=== PATIENT | male | born 1930 | race Caucasian/White ===

== ENCOUNTER 2017-07-17 16:27 | Observation (INO) ==
[2017-07-18] MEDS ORDERED: Naloxone 0.4 MG/ML INJ IVP PRN ×2 (09:29→09:32)
[2017-07-18] MEDS ORDERED: *HR* HYDROcodone/Acet 5/325 mg TABLET PO PRN (09:32)
[2017-07-18] MEDS ORDERED: *HR* HYDROmorphone (PF) 1 MG/ML SYRINGE IVP PRN (09:32)
--- NOTE | 2017-07-18 09:39 | Urology History & Physical ---
Date of Encounter: 07/18/17 Time of Encounter: 09:37 Assessment and Plan (1) Acute on chronic renal insufficiency Current Visit: Yes Status: Acute Im concerned the pt has developed ureteral obstruction after TURBT secondary to extensive tumor at trigone. will obtain stat labs and ct scan. may need IR nephrostomy tube. 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 Barnes is a 87 year old male pt underwent TURBT on thursday. extensive bladder CA at trigone. unable to visualize left UO. right UO spared. CR has increased from 1.4 to 2.0 to 2.9 this week. pt asymptomatic. told to come to hospital for admission. Past Med Surg Social Fam HX - Past Medical History Medical history: hyperlipidemia, hypertension Psychiatric history: no psych history - Past Surgical History Surgical History: angioplasty/stent, appendectomy, cholecystectomy, hip replacement - Social History Smoking Status: Never smoker Smokeless Tobacco Status: Yes Drug use: none Medications and Allergies Cholecalciferol (D-3) [Vitamin D] 1,000 unit PO DAILY 02/11/17 [History] Finasteride [Proscar] 5 mg PO DAILY 02/11/17 [History] Lovastatin 40 mg PO HS 02/11/17 [History] Oxaprozin [Daypro] 600 mg PO BID 02/11/17 [History] Ramipril [Altace] 10 mg PO DAILY 02/11/17 [History] Amlodipine Besylate 10 mg PO DAILY 07/14/17 [History] Metoprolol XL (24 HR) Succ [Toprol Xl] 50 mg PO DAILY 07/14/17 [History] Metoprolol XL (24 HR) Succ [Toprol Xl] 50 mg PO DAILY tab.er.24h 07/14/17 [Rx] OxyCODONE/APAP 5/325 [Percocet 5/325 MG] 1 each PO Q4HR PRN #10 tablet 07/14/17 [Rx] Phenazopyridine [Pyridium] 100 mg PO TID PRN #20 tablet 07/14/17 [Rx] amLODIPine [Norvasc] 10 mg PO DAILY tablet 07/14/17 [Rx] 3 Allergy/AdvReac Type Severity Reaction Status Date / Time NAHEED Inhibitors AdvReac Mild See Verified 07/14/17 13:45 Comments Sulfa (Sulfonamide AdvReac Rash Verified 07/14/17 13:45 Antibiotics) Review of Systems - Constitutional no fever(s) - EENT Nose, mouth and throat: no dizziness - Cardiovascular no chest pain - Respiratory no cough - Gastrointestinal no abdominal pain - Genitourinary hematuria - Musculoskeletal no back pain - Integumentary no erythema - Neurological no confusion - Psychiatric no anxiety - Hematologic/Lymphatic no easy bleeding - Allergic/Immunologic no throat swelling Exam - General physical appearance Present: well developed, no distress - Eyes Present: PERRL - ENT Present: normal nares - Neck Present: no masses - Respiratory Present: normal respiratory effort - Abdomen Abdomen: Present: soft - Integumentary Present: no rash - Neurologic Present: normal coordination. Absent: disoriented, confused Urology Results - Labs All other labs normal.
[2017-07-18] MEDS: 0.9 % Sodium Chloride 1,000 ML IVC SCH ×2 (11:09→22:19)
[2017-07-18] MEDS: Ondansetron 4 MG/2 ML VIAL IVP PRN ×2 (11:29→18:17)
[2017-07-18 11:36] LABS: Basophils % 0.3 %; Eosinophils % 0.5 %; Hematocrit 37.5 % (37.5-50.1); Hemoglobin 12.3 g/dL (12.9-16.9); Immature Granulocytes % 0.5 % (0-4); Lymphocytes # 0.7 K/mcL (0.6-4.6); Lymphocytes % 9.1 %; Mean Corpuscular HGB Conc 32.8 g/dL (31.6-35.5); Mean Corpuscular Hemoglobin 31.7 pg (28.0-33.3); Mean Corpuscular Volume 96.6 fL (83.0-100.0); Mean Platelet Volume 10.7 fL (9.4-12.4); Monocytes # 0.9 K/mcL (0.0-1.3); Monocytes % 11.8 %; Platelet Count 216 K/mcL (140-400); Red Blood Count 3.88 M/mcL (4.19-5.50); Red Cell Distribution Width 13.9 % (11.5-14.5); Segmented Neutrophils % 77.8 %
[2017-07-18 11:40] LABS: Neutrophils # 6.1 K/mcL (1.6-8.9)
[2017-07-18 11:42] LABS: INR 1.1
[2017-07-18 11:45] LABS: Activated Partial Thrombo Time 25.8 Seconds (26.0-36.0)
[2017-07-18 11:49] LABS: Calcium 10.1 mg/dL (8.6-10.8); Potassium 4.9 mEq/L (3.5-4.5)
[2017-07-18] MEDS: *HR* Promethazine 25 MG/ML VIAL IVP PRN ×2 (14:43→22:21)
[2017-07-19 07:09] VITALS: BP 145/81
[2017-07-19 07:42] LABS: Potassium 4.1 mEq/L (3.5-4.5)
[2017-07-19 07:43] LABS: Calcium 8.5 mg/dL (8.6-10.8)
--- NOTE | 2017-07-19 08:33 | Urology Progress Note ---
Date of Encounter: 07/19/17 Time of Encounter: 08:31 - Assessment and Plan (1) Acute on chronic renal insufficiency Current Visit: Yes Status: Resolved Assessment and plan: Resolved with nephrostomy tube. Creatinine down to 1.6. Likely discharge today. 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 No nausea the last 12 hours. Feels okay. Nephrostomy tube placed yesterday afternoon. Objective Initial Vital Signs Temp Pulse Resp BP Pulse Ox 98.2 F 83 18 125/79 94 07/18/17 10:59 07/18/17 10:59 07/18/17 10:59 07/18/17 10:59 07/18/17 10:59 - General physical appearance Present: no distress - Additional Exam Voided urine transparent but dusky Right nephrostomy tube transparent brownish urine. - Labs 07/18/17 11:06 07/19/17 07:18 Diabetes panel 07/18/17 07/19/17 Range/Units 11:06 07:18 Sodium 139 142 (136-145) mEq/L Potassium 4.9 H 4.1 (3.5-4.5) mEq/L Chloride 105 108 (98-109) mEq/L Carbon Dioxide 24 24 (19-29) mEq/L BUN 46 H 41 H (8-26) mg/dL Creatinine 2.76 H 1.66 H (0.72-1.25) mg/dL Glucose 122 H 100 H (70-99) mg/dL Calcium 10.1 8.5 L D (8.6-10.8) mg/dL Calcium panel 07/18/17 07/19/17 Range/Units 11:06 07:18 Calcium 10.1 8.5 L D (8.6-10.8) mg/dL Pituitary panel 07/18/17 07/19/17 Range/Units 11:06 07:18 Sodium 139 142 (136-145) mEq/L Potassium 4.9 H 4.1 (3.5-4.5) mEq/L Chloride 105 108 (98-109) mEq/L Carbon Dioxide 24 24 (19-29) mEq/L BUN 46 H 41 H (8-26) mg/dL Creatinine 2.76 H 1.66 H (0.72-1.25) mg/dL Glucose 122 H 100 H (70-99) mg/dL Calcium 10.1 8.5 L D (8.6-10.8) mg/dL Adrenal panel 07/18/17 07/19/17 Range/Units 11:06 07:18 Sodium 139 142 (136-145) mEq/L Potassium 4.9 H 4.1 (3.5-4.5) mEq/L Chloride 105 108 (98-109) mEq/L Carbon Dioxide 24 24 (19-29) mEq/L BUN 46 H 41 H (8-26) mg/dL Creatinine 2.76 H 1.66 H (0.72-1.25) mg/dL Glucose 122 H 100 H (70-99) mg/dL Calcium 10.1 8.5 L D (8.6-10.8) mg/dL Consult Discharge Plan - Plan Referrals: Cassia Hernandez, TRACTOR MECHANIC APPRENTICE [Primary Care Provider] -
--- NOTE | 2017-07-19 08:36 | Discharge Summary ---
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 - Discharge Medications Prescriptions: Cephalexin [Keflex] 500 mg PO BID #10 capsule Home Medications: Cholecalciferol (D-3) [Vitamin D] 1,000 unit PO DAILY 02/11/17 [History] Finasteride [Proscar] 5 mg PO DAILY 02/11/17 [History] Lovastatin 40 mg PO HS 02/11/17 [History] Oxaprozin [Daypro] 600 mg PO BID 02/11/17 [History] Ramipril [Altace] 10 mg PO DAILY 02/11/17 [History] Amlodipine Besylate 10 mg PO DAILY 07/14/17 [History] Metoprolol XL (24 HR) Succ [Toprol Xl] 50 mg PO DAILY tab.er.24h 07/14/17 [Rx] Alfuzosin HCl [Uroxatral] 10 mg PO DAILY 07/18/17 [History] Cephalexin [Keflex] 500 mg PO BID #10 capsule 07/19/17 [Rx] Allergies/Adverse Reactions: 3 Allergy/AdvReac Type Severity Reaction Status Date / Time NAHEED Inhibitors AdvReac Mild See Verified 07/14/17 13:45 Comments Sulfa (Sulfonamide AdvReac Rash Verified 07/14/17 13:45 Antibiotics) Labs on day of discharge: Labs from last 24 hours 07/19/17 07/18/17 07/18/17 07:18 11:06 11:06 WBC RBC Hgb Hct MCV MCH MCHC RDW Plt Count MPV Immature Gran % Seg Neutrophils % Lymphocytes % Monocytes % Eosinophils % Basophils % Neutrophils # Lymphocytes # Monocytes # Eosinophils # Basophils # Immature Plt Fraction PT 12.0 INR 1.1 APTT 25.8 L Sodium 142 139 Potassium 4.1 4.9 H Chloride 108 105 Carbon Dioxide 24 24 BUN 41 H 46 H Creatinine 1.66 H 2.76 H Est GFR ( Amer) 48 L 27 L Est GFR (Non-Af Amer) 40 L 22 L BUN/Creatinine Ratio 25 17 Glucose 100 H 122 H Calculated Osmolality 304 H 301 H Calcium 8.5 L D 10.1 07/18/17 11:06 WBC 7.8 D RBC 3.88 L Hgb 12.3 L Hct 37.5 MCV 96.6 MCH 31.7 MCHC 32.8 RDW 13.9 Plt Count 216 MPV 10.7 Immature Gran % 0.5 Seg Neutrophils % 77.8 Lymphocytes % 9.1 Monocytes % 11.8 Eosinophils % 0.5 Basophils % 0.3 Neutrophils # 6.1 Lymphocytes # 0.7 Monocytes # 0.9 Eosinophils # 0.0 Basophils # 0.0 Immature Plt Fraction 5.0 PT INR APTT Sodium Potassium Chloride Carbon Dioxide BUN Creatinine Est GFR ( Amer) Est GFR (Non-Af Amer) BUN/Creatinine Ratio Glucose Calculated Osmolality Calcium - Impressions ITS Impressions Abdomen/Pelvis CT 07/18/17 09:32 IMPRESSION: 1. Recent history of bladder surgery with multiple mucosal nodules observed within the lumen on the current exam. Mild inflammation in the perivesicular fat. 2. Mild right hydroureteronephrosis likely secondary to recent procedure. Possibility of obstruction at the right UVJ cannot be excluded. 3. Multiple cystic lesions in the bilateral kidneys which cannot be characterized on this noncontrast exam. 1 on the left is hyperdense. Follow-up evaluation may be considered with multiphase CT or MRI using renal protocol. 4. Chronic pleural changes in the lower chest incidentally noted. D/ / Santiago Coffey MD / Santiago Coffey MD Interpreting Provider: Santiago Coffey MD Date of admission: 07/18/17 08:51 Primary care physician: Cassia Hernandez CNP Discharging clinician: Wiley Angel Anticipated date of discharge: 07/19/17 - Patient Status Disposition: Home, Self-Care Condition: Good Functional capacity at discharge: independent ambulation Overall status at discharge: patient is progressing back to baseline - Discharge Instructions Follow Up With: Cassia Hernandez CNP [Primary Care Provider] - Wiley Angel MD [Partnered Physician] - (my office will call to remove nephrostomy tube and antegrade a stent into the bladder. ) Additional Instructions: OK to shower no baths or swimming. protect the nephrostomy tube so it is not accidentally removed please instruct patient how to empty the bag and secure bag. - Diet and Activity Activity: resume usual activities as tolerated Diet: advance to your usual diet - Hospital Course Hospital course: Mr. Barnes is a 87 year old male admitted with worsening renal function after TURBT. CT with with right hydronephrosis. nephrostomy tube placed. Cr back to near baseline. N/V after procedure but none in 12hours. - Time Spent with Patient Total time spent providing and/or coordinating discharge services: Exam Initial Vital Signs Temp Pulse Resp BP Pulse Ox 98.2 F 83 18 125/79 94 07/18/17 10:59 07/18/17 10:59 07/18/17 10:59 07/18/17 10:59 07/18/17 10:59 - General physical appearance Present: well developed, no distress - Additional Findings urine transparent brownish
[2017-07-19] MEDS ORDERED: Metoprolol XL (24 HR) Succ 50 MG TAB.ER.24H PO SCH (09:00)
[2017-07-19] MEDS ORDERED: Finasteride 5 MG TABLET PO SCH (09:00)
[2017-07-19] MEDS ORDERED: amLODIPine 5 MG TABLET PO SCH (09:00)
== END 2017-07-19 16:45 | disposition home or self-care (01) ==
LOC: 3ANU
PROVIDERS: ADMIT Urology; ATTEND Urology

== ENCOUNTER 2018-04-13 12:09 | Observation (INO) ==
--- NOTE | 2018-04-13 08:40 | Anesthesia Evaluation PreOp ---
Date of Encounter: 04/13/18 Time of Encounter: 13:33 - Past History Planned Operation: TURBT Cardiac History: DC (2004), HTN, Hyperlipidemia, Cardiac Stent (stent x 2, most recent in 2005) Pulmonary History: Former smoker (quit 30 years), Snore FLEET ADMINISTRATIVE ASSISTANT History: Denies Any Significant HX Other Medical History: Renal (stage 3 CKD, bladder tumor), GERD Anesthesia History: No Prior Anesthetic Complications, Past Anesthesia Alcohol Use: none Drug use: none Medications and Allergies Cholecalciferol (D-3) [Vitamin D] 1,000 unit PO DAILY 02/11/17 [History] Finasteride [Proscar] 5 mg PO DAILY 02/11/17 [History] Oxaprozin [Daypro] 600 mg PO BID 02/11/17 [History] Ramipril [Altace] 10 mg PO DAILY 02/11/17 [History] Metoprolol XL (24 HR) Succ [Toprol Xl] 50 mg PO DAILY tab.er.24h 07/14/17 [Rx] Amlodipine Besylate 10 mg PO DAILY 12/01/17 [History] HYDROcodone/Acet 5/325 mg [[place] 5-325 mg] 1 tab PO Q4H PRN 3 Days #10 tab 12/01 [Rx] Lovastatin 40 mg PO HS 12/01/17 [History] Ondansetron HCl [Zofran] 4 mg PO Q8HR PRN #30 tab 12/23/17 [Rx] Oxybutynin [Ditropan] 5 mg PO TID #30 tablet 01/05/18 [Rx] raNITIdine HCl [Zantac] 150 mg PO DAILY #30 tablet 01/19/18 [Rx] 3 Allergy/AdvReac Type Severity Reaction Status Date / Time NAHEED Inhibitors AdvReac Mild See Verified 01/05/18 08:41 Comments Sulfa (Sulfonamide AdvReac Rash Verified 01/05/18 08:41 Antibiotics) - Meds/Allergy Pre-op Review Medications Reviewed: Yes Allergies Reviewed: Yes Beta Blockers on Current Med List: Yes If Beta Blockers taken, Date/Time (Last Dose taken): 04/13/2018 at 0830 Anesthesia Results - Labs Laboratory Tests 07/18/17 01/05/18 01/05/18 11:06 08:16 08:16 WBC 5.5 Hgb 13.5 Hct 41.6 Plt Count 248 PT 12.0 INR 1.1 APTT 25.8 L Sodium 138 Potassium 4.3 BUN 36 H Creatinine 1.57 H - Imaging EKG: report reviewed (12/01/2017 SINUS RHYTHM) Additional studies: ECHO Impressions: LVEF 55%. Not all LV segments were well visualized, but overall function is normal. Normal LV chamber size and wall thickness. Mild left ventricular diastolic dysfunction. Normal right ventricular structure and function. No evidence of pulmonary hypertension. No significant valvular dysfunction. Anesthesia Exam O2 Sat Height 1.77 m Height 1.77 m Weight 85.275 kg Weight 85.275 kg O2 Sat by Pulse Oximetry 97 Vital Signs Temp Pulse Resp BP Pulse Ox 97.5 F L 68 18 130/73 97 04/13/18 12:32 04/13/18 12:32 04/13/18 12:32 04/13/18 12:32 04/13/18 12:32 Height: 5'10" Weight: 188 lbs NPO (# of Hours): 8 Pain Scale: 0 Pain Scale Used: Numeric (1 - 10) - HEENT Pupil (Motor): EOMI Mallampati: III Teeth: Edentulous Oral Opening: Greater than 3 - FLEET ADMINISTRATIVE ASSISTANT LOC: Oriented FLEET ADMINISTRATIVE ASSISTANT Motor: Normal RUE, Normal LUE, Normal RLE, Normal LLE, Normal Face FLEET ADMINISTRATIVE ASSISTANT Sensory: Normal: RUE, LUE, RLE, LLE, Face - Cardiac Rhythm: Regular Murmur: None - Pulmonary Breath Sounds: bilateral Clear Respiratory Effort: Symmetrical Anesthesia Assess/Plan ASA Score: 3 Modified Dao Scale for Level of Consciousness: Cooperative, oriented, and tranquil Anesthetic Plan: General Monitoring Plan: Standard Monitors Recovery Plan: PACU
[~2018-04-13 12:09] MED LIST: MITOMYCIN 40 MG IR SCH; WATER FOR INJ IR SCH
[2018-04-13] MEDS ORDERED: CeFAZolin Syr 2,000MG/20 ML 2,000 MG/20 ML SYRINGE IVPB ONE (13:23)
[2018-04-13] MEDS ORDERED: Ringers Solution, Lactated 1,000 ML IVC SCH (13:30)
--- NOTE | 2018-04-13 14:01 | History & Physical Report ---
Date of Encounter: 04/13/18 Time of Encounter: 14:01 24 Hour HP Update - Instructions Instructions: If the History and Physical is less than 30 days old and was completed prior to A.M. admission and or procedure and has NOT been updated on calendar day of procedure please complete this update prior to performing procedure. - Update Patient reports changes in Medical Condition: No Changes in examination, assessment, or condition: No Changes in Medication: No Preop tests/diagnostics Reviewed: Yes Surgery Remains Indicated: Yes Consent for Planned Operative Procedure(s) Verified: Yes - Pre-Operative Checklist Preoperative Checklist Indicated: Yes Prophylactic Antibiotic Ordered: Yes Home Medications Include Beta Shayy: Yes Beta Shayy Taken Today (Day of Surgery): Yes Beta Shayy Taken Yesterday (Day Prior to Surgery): Yes Is VTE Prophylaxis Indicated?: Yes
[2018-04-13] MEDS ORDERED: *HR* FentaNYL (PF) 100 MCG/2 ML VIAL ONE (14:34)
[2018-04-13] MEDS ORDERED: *HR* Propofol 200 MG/20 ML VIAL IVP ONE (14:34)
[2018-04-13] MEDS ORDERED: Lidocaine -MPF 2% 2 ML VIAL ONE (14:36)
[2018-04-13] MEDS ORDERED: *HR* Promethazine 25 MG/ML VIAL IVP PRN (14:37)
[2018-04-13] MEDS ORDERED: MORPHINE SUL Oral CONC 10 MG/0.5 ML ORAL.SYG SL PRN (14:37)
[2018-04-13] MEDS ORDERED: *HR* HYDROmorphone 2 MG TABLET PO PRN (14:37)
[2018-04-13] MEDS ORDERED: *HR* OxyCODONE Immed Rel 5 MG TABLET PO PRN (14:37)
[2018-04-13] MEDS ORDERED: Ondansetron 4 MG/2 ML VIAL IVP ONE (14:37)
[2018-04-13] MEDS ORDERED: *HR* HYDROcodone/Acet 5/325 mg TABLET PO ONE (14:57)
[2018-04-13] MEDS ORDERED: Acetaminophen IV 1,000 MG/100 ML INFUS..BTL ONE (14:58)
--- NOTE | 2018-04-13 15:01 | Discharge Summary ---
Outpatient Proc Discharge Plan - Plan Additional Instructions: Mitomycin was placed at . Please remove hemostat and allow bladder to drain into Rosenbaum bag at . After the bladder drains, remove the Rosenbaum catheter prior to discharge My office will contact patient regarding pathology and follow-up Expect urgency, frequency, light blood in the urine, burning on urination Avoid heavy lifting and heavy activity for at least 1 week. OK to use AZO OTC for dysuria. Prescriptions: HYDROcodone/Acet 5/325 mg [[place] 5-325 mg] 1 tab PO Q4H PRN 3 Days #15 tab PRN Reason: Pain Home Medications: Cholecalciferol (D-3) [Vitamin D] 1,000 unit PO DAILY 02/11/17 [History] Finasteride [Proscar] 5 mg PO DAILY 02/11/17 [History] Oxaprozin [Daypro] 600 mg PO BID 02/11/17 [History] Ramipril [Altace] 10 mg PO DAILY 02/11/17 [History] Metoprolol XL (24 HR) Succ [Toprol Xl] 50 mg PO DAILY tab.er.24h 07/14/17 [Rx] Amlodipine Besylate 10 mg PO DAILY 12/01/17 [History] Lovastatin 40 mg PO HS 12/01/17 [History] Oxybutynin [Ditropan] 5 mg PO TID #30 tablet 01/05/18 [Rx] HYDROcodone/Acet 5/325 mg [[place] 5-325 mg] 1 tab PO Q4H PRN 3 Days #15 tab 04/13 [Rx]
--- NOTE | 2018-04-13 15:02 | Operative Note ---
Date of procedure: 04/13/18 Pre-op diagnosis: recurrent bladder cancer/tumors Post-op diagnosis: same Procedure: TURBT (medium - 3 cm) Anesthesia: GETA Surgeon: Wiley Anegl Was there an clinical education assistant present: No Estimated blood loss (cc): 10 Specimen: bladder tumor Condition: stable Disposition: PACU Procedure in Detail: PROCEDURE IN DETAIL: Patient was taken back to the operating room, positioned supine on the operating table. Anesthesia was applied without complication. They were moved into dorsal lithotomy. Careful attention was maintained to cushion pressure points for patient's safety. The patient was prepped and draped in sterile fashion. Time-out was performed to confirm the proper patient and procedure. 21 [place] rigid cystoscope was inserted into the bladder without difficulty. The right UO was located away from tumor and not cannulated. The left UO was displaced from previous resection and I cannulated the orifice with a 5 [place] ureteral catheter which passed easily. This was left in place for the duration of the case to verify that the orifice was not damaged during the resection. The patient had multiple tumors throughout the trigone turning back to the posterior wall. Unfortunately, he had a large volume of tumor on the anterior bladder neck which appeared to extend into the prostatic urethra. There was a nodular abnormality emanating from the right bladder neck versus prostatic urethra that was concerning for high-grade tumor. At a minimum the mucosa in the prostatic urethra was involved. I removed the cystoscope and placed the resectoscope with visual obturator. Once the resectoscope was in position, a 22-[place] Citizen loop with a coagulation/cut settings of 80/80 was used to resect as much of the visible tumor as possible. There was no obturator reflex during the procedure. Muscle appeared to be visualized in the resection site and there was no evidence of perforation. There was extensive resection involving the anterior bladder neck and some of the prostatic urethra. Most of the sessile lesions within the bladder were fulgurated.. Hemostasis was controlled with the loop. All tumor chips were removed from the bladder through the resectoscope and sent for permanent specimen. I emptied and filled the bladder a few times to confirm hemostasis. 22 [place] three-way Rosenbaum catheter was placed without complication and light CBI resulted in clear urine. I elected not to proceed with the mitomycin because of the potential prostatic involvement They were brought out of anesthesia in stable condition.
[2018-04-13] MEDS ORDERED: Ondansetron 4 MG/2 ML VIAL ONE (15:18)
[2018-04-13] MEDS ORDERED: Dexamethasone 4 MG/ML VIAL ONE (15:18)
[2018-04-13] MEDS ORDERED: EPHEDrine 50 MG/ML VIAL ONE (15:21)
--- NOTE | 2018-04-13 16:52 | Anesthesia Evaluation Post Op ---
Date of Encounter: 04/13/18 Time of Encounter: 16:51 - Vital Signs Vital Signs: Vital Signs/O2 Sat, Most Current Temp Pulse Resp BP Pulse Ox 97.2 F L 77 20 140/88 96 04/13/18 16:46 04/13/18 16:46 04/13/18 16:46 04/13/18 16:46 04/13/18 16:46 - Lungs Lungs: Clear Ascult./Percussion - Airway Airway: Non-obstructed - Cardiovascular Regular Rate - Mental Status Mental Status: Alert & Oriented, Answers Appropriately - Pain Pain Scale: 0 Pain Scale used: Numeric (1 - 10) - Nausea Vomiting Nausea Vomiting: Not Present - Hydration Hydration: NPO, Rosenbaum catheter - Discharge PostOp Status: Transfer Patient to floor
[2018-04-13] MEDS ORDERED: *HR* HYDROcodone/Acet 5/325 mg TABLET PO PRN (17:52)
[2018-04-13] MEDS ORDERED: Ondansetron 4 MG/2 ML VIAL IVP PRN (17:52)
[2018-04-13] MEDS ORDERED: Naloxone 0.4 MG/ML INJ IVP PRN (17:52)
[2018-04-13] MEDS ORDERED: OXYCODONE Oral CONC 10 MG/0.5 ML ORAL.SYG SL PRN ×2 (17:52)
[2018-04-13] MEDS ORDERED: 0.9 % Sodium Chloride 1,000 ML IVC SCH (17:52)
[2018-04-13] MEDS ORDERED: *HR* Belladonna Alkaloids/Opium 30 MG RECTAL SUPPOSITORY RC PRN (17:52)
[2018-04-13] MEDS ORDERED: Diclofenac Sodium (24 HR) 100 MG TABLET PO SCH (21:00)
[2018-04-14] MEDS: ceFAZolin 1,000 MG in Water for inj. (sterile) 20 ML 10 ML IVP SCH ×2 (00:15→10:08)
[2018-04-14 06:41] LABS: Basophils % 0.3 %; Hematocrit 35.9 % (37.5-50.1); Hemoglobin 12.2 g/dL (12.9-16.9); Immature Granulocytes % 0.1 % (0-4); Lymphocytes % 13.5 %; Mean Corpuscular Volume 91.3 fL (83.0-100.0); Mean Platelet Volume 10.2 fL (9.4-12.4); Monocytes # 0.7 K/mcL (0.0-1.3); Monocytes % 9.8 %; Neutrophils # 5.8 K/mcL (1.6-8.9); Platelet Count 206 K/mcL (140-400); Red Blood Count 3.93 M/mcL (4.19-5.50); Segmented Neutrophils % 76.3 %
[2018-04-14 06:57] LABS: Calcium 8.3 mg/dL (8.6-10.3); Potassium 4.5 mEq/L (3.5-5.1)
[2018-04-14 07:04] VITALS: BP 121/71
--- NOTE | 2018-04-14 07:15 | Discharge Summary ---
Orders not resulted at time of discharge: Pending orders 04/13/18 16:08 Surgical Pathology [PTH] Routine Date of Encounter: 04/14/18 Time of Encounter: 07:16 - Discharge Diagnosis (1) Bladder cancer Priority: Primary Status: Acute Qualifiers: Bladder location: overlapping sites Qualified Code(s): C67.8 - Malignant neoplasm of overlapping sites of bladder - Hospital Course Hospital course: Mr. Barnes is a 87 year old male s/p TURBT with some increased hematuria in recovery. admitted overnight with CBI. hgb stable Cr 1.45. urine has cleared. ok for discharge. - Time Spent with Patient Total time spent providing and/or coordinating discharge services: Less than 30 minutes Labs on day of discharge: Labs from last 24 hours 04/14/18 04/14/18 06:18 06:18 WBC 7.6 RBC 3.93 L Hgb 12.2 L Hct 35.9 L MCV 91.3 MCH 31.0 MCHC 34.0 RDW 15.0 H Plt Count 206 MPV 10.2 Immature Gran % 0.1 Seg Neutrophils % 76.3 Lymphocytes % 13.5 Monocytes % 9.8 Eosinophils % 0.0 Basophils % 0.3 Neutrophils # 5.8 Lymphocytes # 1.0 Monocytes # 0.7 Eosinophils # 0.0 Basophils # 0.0 Sodium 139 Potassium 4.5 Chloride 110 H Carbon Dioxide 21 L BUN 38 H Creatinine 1.45 H Est GFR ( Amer) 56 L Est GFR (Non-Af Amer) 46 L BUN/Creatinine Ratio 26 Glucose 134 H Calculated Osmolality 299 Calcium 8.3 L - Discharge Medications Prescriptions: HYDROcodone/Acet 5/325 mg [[place] 5-325 mg] 1 tab PO Q6HR PRN 5 Days #15 tablet PRN Reason: Moderate Pain Home Medications: Cholecalciferol (D-3) [Vitamin D] 1,000 unit PO DAILY 02/11/17 [History] Finasteride [Proscar] 5 mg PO DAILY 02/11/17 [History] Oxaprozin [Daypro] 600 mg PO BID 02/11/17 [History] Ramipril [Altace] 10 mg PO DAILY 02/11/17 [History] Metoprolol XL (24 HR) Succ [Toprol Xl] 50 mg PO DAILY tab.er.24h 07/14/17 [Rx] Amlodipine Besylate 10 mg PO DAILY 12/01/17 [History] Lovastatin 40 mg PO HS 12/01/17 [History] Finasteride [Proscar] 5 mg PO DAILY tablet 04/14/18 [Rx] HYDROcodone/Acet 5/325 mg [[place] 5-325 mg] 1 tab PO Q6HR PRN 5 Days #15 tablet 04/14/18 [Rx] Allergies/Adverse Reactions: 3 Allergy/AdvReac Type Severity Reaction Status Date / Time NAHEED Inhibitors AdvReac Mild See Verified 01/05/18 08:41 Comments Sulfa (Sulfonamide AdvReac Rash Verified 01/05/18 08:41 Antibiotics) Date of admission: 04/13/18 17:52 Primary care physician: Cassia Hernandez CNP Discharging clinician: Wiley Angel Anticipated date of discharge: 04/14/18 Exam Initial Vital Signs Temp Pulse Resp BP Pulse Ox 97.5 F L 68 18 130/73 97 04/13/18 12:32 04/13/18 12:32 04/13/18 12:32 04/13/18 12:32 04/13/18 12:32 - General physical appearance Present: no distress - Additional Findings very light hematuria off CBI; - Patient Status Disposition: Home, Self-Care Condition: Good Functional capacity at discharge: independent ambulation Overall status at discharge: patient is progressing back to baseline - Discharge Instructions Follow Up With: Cassia Hernandez CNP [Primary Care Provider] - Wiley Angel MD [Partnered Physician] - (Tomorrow afternoon in [place]. My office will call with a time) Additional Instructions: discharge with catheter in place. place cath plug on third port. expect some light blood in the urine avoid heavy lifting or straining. - Diet and Activity Activity: other Diet: advance to your usual diet
[2018-04-14] MEDS ORDERED: amLODIPine 5 MG TABLET PO SCH (09:00)
[2018-04-14] MEDS ORDERED: Finasteride 5 MG TABLET PO SCH (09:00)
[2018-04-14] MEDS ORDERED: Lisinopril 20 MG TABLET PO SCH (09:00)
[2018-04-14] MEDS ORDERED: Metoprolol XL (24 HR) Succ 25 MG TAB.ER.24H PO SCH (09:00)
== END 2018-04-14 11:17 | disposition home or self-care (01) ==
LOC: 3ANU 12:09 → SAMDAY 12:09 → 3ANU 17:13
PROVIDERS: ADMIT Urology; ATTEND Urology